=== PATIENT | female | born 1930 | race Caucasian/White ===

== ENCOUNTER → 2016-12-25 | Outpatient (CLI) | payer MEDICARE, BC ==
[2013-12-27 22:57] VITALS: BP 119/57
--- NOTE | 2016-12-25 09:23 | RAD ---
Examination: Single view of the right hip with frontal view of the pelvis History: History of right hip pain. Comparison: None available Findings: The bilateral femoral heads are within the acetabula. There is moderate joint space loss identified in the bilateral hip joints likely due to degeneration. There is no acute fracture or dislocation identified. Moderate degenerative changes lower lumbar spine. Impression: 1. Moderate degenerative changes bilateral hip joints.
== END | disposition home or self-care (01) ==
LOC: DXRADRC 07:45
PROVIDERS: ATTEND Physician Assistant Medical
DX: M16.0 Bilateral primary osteoarthritis of hip (principal); M47.816 Spondylosis without myelopathy or radiculopathy, lumbar region
CPT/HCPCS: 73501

== ENCOUNTER 2019-05-20 10:37 | Observation (INO) | payer MEDICARE ==
[~2019-05-20] VITALS: Ht 157.5 cm; Wt 58.5 kg
[2019-05-20] MEDS ORDERED: MORPHINE SULFATE 2 MG/ML DISP.SYRIN. IV ONE (11:00)
[2019-05-20] MEDS ORDERED: IV NORMAL SALINE 500ML 500 ML IV ONE (11:00)
[2019-05-20] MEDS ORDERED: ASPIRIN 81 MG TAB.CHEW PO ONE (11:00)
--- NOTE | 2019-05-20 11:00 | PHYS DOC ---
Past History Past Medical History: Hypertension, TIA Past Surgical History: Appendectomy, Cholecystectomy, Tonsillectomy Alcohol Use: None Drug Use: None Adult General Chief Complaint Chief Complaint: CHEST PAIN [facility] HPI Patient is a 89-year-old female with past medical history significant for hypertension presents secondary to complaint of substernal chest pain that started approximately 30 minutes prior to arrival and lasted for 10 minutes. The patient states that she was sitting down eating breakfast when all of a sudden she started choking slightly and developed some central chest pain that was described as a pressure and rated as moderate to severe. This lasted for approximately 10 minutes and then resolved spontaneously. She has had some intermittent shortness of breath since that time. Patient also complains of intermittent right upper arm pain for the past couple of days with no known injury. She did not take her blood pressure medication this morning. She has not been sick recently. Review of Systems Review of Systems All other ROS is negative unless otherwise stated in HPI Allergies Allergies Allergies Coded Allergies Type Severity Reaction Last Updated Verified No Known Drug Allergies 12/27/13 No Physical Exam Physical Exam See above Constitutional: Well developed, well nourished, slightly anxious, non-toxic appearance. [] HENT: Normocephalic, atraumatic, bilateral external ears normal, oropharynx moist, no oral exudates, nose normal. [] Eyes: PERRLA, EOMI, conjunctiva normal, no discharge. [] Neck: Normal range of motion, no tenderness, supple, no stridor. [] Cardiovascular:Heart rate regular rhythm, no murmur [] Lungs & Thorax: Bilateral breath sounds clear to auscultation []chest is nontender to palpation Abdomen: Bowel sounds normal, soft, no tenderness, no masses, no pulsatile masses. [] Skin: Warm, dry, no erythema, no rash. [] Back: No tenderness, no CVA tenderness. [] Extremities: No tenderness, no cyanosis, no clubbing, ROM intact, no edema. [] Neurologic: Alert and oriented X 3, normal motor function, normal sensory function, no focal deficits noted. [] Psychologic: Affect normal, judgement normal, mood normal. [] Current Patient Data Lab Results Laboratory Tests Test 05/20/19 10:50 White Blood Count 6.0 x10^3/uL Red Blood Count 4.09 x10^6/uL Hemoglobin 12.6 g/dL Hematocrit 37.6 % Mean Corpuscular Volume 92 fL Mean Corpuscular Hemoglobin 31 pg Mean Corpuscular Hemoglobin Concent 33 g/dL Red Cell Distribution Width 13.2 % Platelet Count 299 x10^3/uL Neutrophils (%) (Auto) 67 % Lymphocytes (%) (Auto) 21 % Monocytes (%) (Auto) 7 % Eosinophils (%) (Auto) 4 % Basophils (%) (Auto) 1 % Neutrophils # (Auto) 4.0 x10^3uL Lymphocytes # (Auto) 1.3 x10^3/uL Monocytes # (Auto) 0.4 x10^3/uL Eosinophils # (Auto) 0.2 x10^3/uL Basophils # (Auto) 0.1 x10^3/uL Prothrombin Time 9.6 SEC Prothromb Time International Ratio 0.9 Activated Partial Thromboplast Time 25 SEC D-Dimer (Alisa) 0.66 mg/L Sodium Level 141 mmol/L Potassium Level 4.0 mmol/L Chloride Level 102 mmol/L Carbon Dioxide Level 26 mmol/L Anion Gap 13 Blood Urea Nitrogen 19 mg/dL Creatinine 1.5 mg/dL Estimated GFR (Cockcroft-Gault) 32.8 Glucose Level 101 mg/dL Calcium Level 9.1 mg/dL Magnesium Level 2.1 mg/dL Creatine Kinase 63 U/L Creatine Kinase MB (Mass) 1.2 ng/mL Creatine Kinase MB Relative Index 1.9 % Troponin I Quantitative < 0.017 ng/mL DO-Txx-B-Type Natriuretic Peptide 533 pg/mL Lipase 187 U/L Current Medications Medications (Trade) Dose Ordered Sig/Dilma Route PRN Reason Start Time Stop Time Status Last Admin Dose Admin Aspirin (Children'S Aspirin) 324 mg 1X ONCE PO 05/20/19 11:00 05/20/19 11:05 DC 05/20/19 11:11 Morphine Sulfate (Morphine 2mg Syringe) 2 mg 1X ONCE IV 05/20/19 11:00 05/20/19 11:05 DC 05/20/19 11:12 Sodium Chloride 500 ml @ 0 mls/hr 1X ONCE IV 05/20/19 11:00 05/20/19 11:05 DC 05/20/19 11:12 Ondansetron HCl (Zofran) 4 mg STK-MED ONCE .ROUTE 2/8/20 11:10 05/20/19 11:10 DC Ondansetron HCl (Zofran) 4 mg 1X ONCE IVP 05/20/19 11:15 05/20/19 11:16 DC 05/20/19 11:15 Famotidine (Pepcid Vial) 20 mg 1X ONCE IVP 05/20/19 12:00 05/20/19 12:01 DC 05/20/19 12:00 Iohexol (Omnipaque 350 Mg/ml) 100 ml 1X ONCE IV 05/20/19 12:30 05/20/19 12:31 DC Info (Do NOT chart on this entry -- for MONITORING) 1 each PRN DAILY PRN MC SEE COMMENTS 05/20/19 12:30 05/22/19 12:29 EKG EKG EKG shows normal sinus rhythm without ST changes. Patient's intervals are normal.[] Radiology/Procedures Radiology/Procedures EXAM: PORTABLE CHEST 1V INDICATION: Chest pain. TECHNIQUE: Single view COMPARISON: None FINDINGS: The heart size is normal. The great vessels appear unremarkable. No hilar mass is present. There is a double density cephalad to the aortic knob that could represent engorgement or tortuosity of the super aortic vessels. The lungs are mildly hyperlucent apices is clear. There is no pleural effusion or pneumothorax. There are no significant osseous abnormalities. IMPRESSION: Lung hyperlucency and possible engorgement of the supraaortic vessels. Otherwise no acute cardiopulmonary process. Based on index of clinical suspicion, further imaging by chest CT could be pursued. Electronically signed by: Theresa Garcia MD (05/20/2019 11:26 AM) [facility] EXAM: CT Pulmonary Angiogram INDICATION: Shortness of breath, abnormal chest x-ray at elevated d-dimer. TECHNIQUE: Multi-detector row images were acquired from the thoracic inlet through the upper abdomen with the use of IV contrast. Sagittal and coronal images were acquired from the transaxial data. MIP images of the pulmonary arteries were obtained. All CT scans performed at this facility utilize dose optimization techniques as appropriate to the exam, including the following: Automated exposure control and adjustment of the mA and/or KV according to patient size (this includes techniques or standardized protocols for targeted exams where dose is indication/reason for exam). IV CONTRAST: Administered COMPARISON: Chest x-ray earlier same day FINDINGS: PULMONARY ARTERIES: No pulmonary emboli are identified. CARDIOVASCULAR: Tortuous supraaortic vessels, resulting in prominence of the superior mediastinum as noted on earlier same day chest x-ray. Aorta is normal caliber. Coronary calcifications are present. MEDIASTINUM & LOU: Dominant right thyroid lobe nodule measuring 1.9 cm. Small hiatal hernia. Otherwise no mediastinal or hilar mass. LUNGS: Mosaic attenuation to the lungs, suggesting some degree of air trapping. No parenchymal consolidation. Mild vascular congestion notably at the lung bases. PLEURAL SPACE: No pleural effusions or pneumothorax. OSSEOUS & SOFT TISSUE: Old, healed sternal fracture. ABDOMEN: The visualized portions of the upper abdomen are unremarkable. IMPRESSION: Pulmonary congestion with trace right pleural effusion. This is presence in the setting of coronary artery disease. No other acute cardiopulmonary process otherwise shown. Electronically signed by: Theresa Garcia MD (05/20/2019 1:02 PM) [facility][] Course & Med Decision Making Course & Med Decision Making Pertinent Labs and Imaging studies reviewed. (See chart for details) A 9-year-old female seen for chest pain that is currently resolved. In the ED she states that she has a sensation that it might be coming back. We'll initiate cardiac workup, give aspirin and go ahead and give 2 mg of morphine. We'll give her 500 mL normal saline bolus. EKG is unremarkable. Different diagnosis includes corneal function, angina, esophageal spasm, pulmonary embolism, pneumonia. 1310: Patient is workup is completed this time and is rather unremarkable. Her d-dimer was elevated so CT angiogram was performed to look for pulmonary embolism and also some irregularity on chest x-ray; her CT angiogram was unremarkable. She has a mild elevation in her BNP today and a trace pleural effusion as well. Patient will be admitted at this time for observation for chest pain rule out. Dragon Disclaimer Dragon Disclaimer This electronic medical record was generated, in whole or in part, using a voice recognition dictation system. Departure Departure: Impression: Primary Impression: Atypical chest pain Additional Impressions: Elevated brain natriuretic peptide (BNP) level Pleural effusion, right Disposition: ADMITTED INPATIENT Admitting Physician: Diego King Condition: STABLE Referrals: [facility] MON (PCP) HEART Score for Chest Pain PTs The HEART Score for CP Pts HEART Score for Chest Pain: HEART Score for Chest Pain Response (Comments) Value History Moderately Suspicious 1 ECG Normal 0 Age > 65 2 Risk Factors 1 or 2 Risk Factors 1 Troponin < Normal Limit 0 Total 4 Risk Factors: Risk Factors: HTN Risk Scores: Score 0 - 3: 2.5% MACE over next 6 weeks - Discharge Home Score 4 - 6: 20.3% MACE over next 6 weeks - Admit for Clinical Observation Score 7 - 10: 72.7% MACE over next 6 weeks - Early Invasive Strategies Problem Qualifiers ESTEPHANIA CHRISTINE DO May 20, 2019 11:00
[2019-05-20] MEDS ORDERED: ONDANSETRON PF 4 MG/2 ML VIAL. ONE (11:10)
[2019-05-20] MEDS ORDERED: ONDANSETRON PF 4 MG/2 ML VIAL. IVP ONE (11:15)
[2019-05-20 11:20] LABS: BASO # 0.1 x10^3/uL (0.0-0.2); BASO % 1 % (0-3); EOS # 0.2 x10^3/uL (0.0-0.7); EOS % 4 % (0-3); HEMATOCRIT 37.6 % (36.0-47.0); HEMOGLOBIN 12.6 g/dL (12.0-15.5); LYMPH # 1.3 x10^3/uL (1.0-4.8); LYMPH % 21 % (24-48); MEAN CORPUSCULAR HEMOGLOBIN 31 pg (25-35); MEAN CORPUSCULAR HGB CONC 33 g/dL (31-37); MEAN CORPUSCULAR VOLUME 92 fL (79-100); MONO # 0.4 x10^3/uL (0.0-1.1); MONO % 7 % (0-9); NEUT % 67 % (31-73); PLATELET COUNT 299 x10^3/uL (140-400); RED BLOOD COUNT 4.09 x10^6/uL (3.50-5.40); RED CELL DISTRIBUTION WIDTH 13.2 % (11.5-14.5)
[2019-05-20] MEDS ORDERED: OLME1TAB25 PO (11:28)
[2019-05-20 11:29] LABS: CALCIUM 9.1 mg/dL (8.5-10.1); CREATININE 1.5 mg/dL (0.6-1.0); GFR 32.8
--- NOTE | 2019-05-20 11:29 | RAD ---
EXAM: PORTABLE CHEST 1V INDICATION: Chest pain. TECHNIQUE: Single view COMPARISON: None FINDINGS: The heart size is normal. The great vessels appear unremarkable. No hilar mass is present. There is a double density cephalad to the aortic knob that could represent engorgement or tortuosity of the super aortic vessels. The lungs are mildly hyperlucent apices is clear. There is no pleural effusion or pneumothorax. There are no significant osseous abnormalities. IMPRESSION: Lung hyperlucency and possible engorgement of the supraaortic vessels. Otherwise no acute cardiopulmonary process. Based on index of clinical suspicion, further imaging by chest CT could be pursued. Electronically signed by: Theresa Garcia MD (05/20/2019 11:26 AM) [facility]
[2019-05-20 11:45] LABS: MAGNESIUM 2.1 mg/dL (1.8-2.4)
[2019-05-20] MEDS ORDERED: FAMOTIDINE 20 MG/2 ML VIAL IVP ONE (12:00)
[2019-05-20] MEDS ORDERED: IOHEXOL 350 MG/ML 100 ML VIAL. IV ONE (12:30)
[2019-05-20] MEDS ORDERED: CONTRAST GIVEN MC PRN (12:30)
--- NOTE | 2019-05-20 12:42 | EKG ---
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
--- NOTE | 2019-05-20 13:05 | RAD ---
EXAM: CT Pulmonary Angiogram INDICATION: Shortness of breath, abnormal chest x-ray at elevated d-dimer. TECHNIQUE: Multi-detector row images were acquired from the thoracic inlet through the upper abdomen with the use of IV contrast. Sagittal and coronal images were acquired from the transaxial data. MIP images of the pulmonary arteries were obtained. All CT scans performed at this facility utilize dose optimization techniques as appropriate to the exam, including the following: Automated exposure control and adjustment of the mA and/or KV according to patient size (this includes techniques or standardized protocols for targeted exams where dose is indication/reason for exam). IV CONTRAST: Administered COMPARISON: Chest x-ray earlier same day FINDINGS: PULMONARY ARTERIES: No pulmonary emboli are identified. CARDIOVASCULAR: Tortuous supraaortic vessels, resulting in prominence of the superior mediastinum as noted on earlier same day chest x-ray. Aorta is normal caliber. Coronary calcifications are present. MEDIASTINUM & LOU: Dominant right thyroid lobe nodule measuring 1.9 cm. Small hiatal hernia. Otherwise no mediastinal or hilar mass. LUNGS: Mosaic attenuation to the lungs, suggesting some degree of air trapping. No parenchymal consolidation. Mild vascular congestion notably at the lung bases. PLEURAL SPACE: No pleural effusions or pneumothorax. OSSEOUS & SOFT TISSUE: Old, healed sternal fracture. ABDOMEN: The visualized portions of the upper abdomen are unremarkable. IMPRESSION: Pulmonary congestion with trace right pleural effusion. This is presence in the setting of coronary artery disease. No other acute cardiopulmonary process otherwise shown. Electronically signed by: Theresa Garcia MD (05/20/2019 1:02 PM) [facility]
[2019-05-20 13:29] LABS: BACTERIA,URINE MANY /HPF (0-FEW); BILIRUBIN,URINE NEG (NEG); CLARITY,URINE HAZY; COLOR,URINE YELLOW; GLUCOSE,URINE NEG (NEG); NITRITE,URINE NEG (NEG); SQUAMOUS EPITHELIAL CELL,UR OCC /LPF; UROBILINOGEN,URINE 0.2 mg/dL (0.2 mg/dL); WBC,URINE 20-40 /HPF (0-4)
[2019-05-20] MEDS ORDERED: ONDANSETRON PF 4 MG/2 ML VIAL. IV PRN (13:30)
[2019-05-20] MEDS ORDERED: MORPHINE SULFATE 2 MG/ML DISP.SYRIN. IV PRN (13:30)
[2019-05-20 13:53] VITALS: BP 121/54
[2019-05-20] MEDS ORDERED: FLU VAX QS 2019-20 (36MOS+)/PF 0.5 ML SYRINGE. VAX IM ONE (14:30)
[2019-05-20 15:42] VITALS: BP 109/63
--- NOTE | 2019-05-20 16:56 | HP ---
ADMIT DATE: 05/20/2019 HISTORY OF PRESENT ILLNESS: The patient is an 89-year-old female patient, who was brought to the Emergency Room with a complaint of substernal chest pain that started approximately 30 minutes prior to arrival and lasted for about 10 minutes. The patient states that she was sitting down, eating breakfast when all of a sudden she started choking, starting to develop some central chest pain. It was described as a pressure, rated as moderate to severe, lasted about approximately 10 minutes and then resolved spontaneously. She had had some intermittent shortness of breath at that time. She is also complaining of pain in her right shoulder that extends to her right elbow, but no pain in her right forearm or fingers She denied any fall or trauma. She apparently went to the pharmacy and took some ibuprofen that helped the pain. In questioning her further, it transpired that she had this choking episodes before according to her grandson; however, she denied any relation to exertion. She is still fairly independent, lives in her own, takes care of herself, drives and do her own shopping. She was evaluated in the Emergency Room and her lab work showed that he has impaired kidney function with creatinine of 1.5 and estimated GFR of 33 mL per minute. Her blood count was unremarkable. Her prothrombin time, INR and aPTT were normal. However, D-dimer was slightly elevated at 0.66. Urinalysis was unremarkable. It did show 20-40 wbc's, small leukocyte esterase and many bacteria. She has also had first set of cardiac enzymes show troponin to be less than 0.017 and her beta natriuretic peptide was slightly elevated at 533. She has had a chest x-ray, which showed that the heart size is normal, the great vessels appear unremarkable. No hilar mass is present. There is a double density cephalad to the aortic knob that could represent engorgement or tortuosity of the upper aortic vessels. The lungs are mildly have hyperlucent apices. There is no pleural effusion or pneumothorax. There is no significant osseous abnormality. Given the finding on the chest x-ray and also the elevated D-dimer, she has had CT angio of the chest, which showed that there are no pulmonary emboli. There are tortuous supra-vessels resulting in prominence of the superior mediastinum as noted on earlier the same day chest x-ray. Aorta is normal in caliber. Coronary calcifications are present. The mediastinum and kim showed dominant right thyroid lobe nodule measuring 1.9 cm, small hiatal hernia, otherwise no mediastinal or hilar masses. The lungs showed mosaic attenuation to the lungs suggesting some degree of air trapping. No parenchymal consolidation. Mild vascular congestion notably at the lung bases, pleural space. No pleural effusion or pneumothorax. Osseous and soft tissue showed an old healed sternal fracture. The visualized portions of the upper abdomen are unremarkable. The impression is the patient has pulmonary congestion with trace right pleural effusion. This is present in the setting of coronary artery disease. No other acute cardiopulmonary process is otherwise shown. The patient was admitted to do 2 more sets of cardiac enzymes, check her fasting lipid profile and consult the Cardiology team. She also has pain in her right shoulder that we will investigate with right shoulder x-ray and if unrevealing, we may have to do a bone scan. PAST MEDICAL HISTORY: Significant for hypertension. She apparently has a history of TIA. MEDICATIONS: She is currently on olmesartan/hydrochlorothiazide 40/125 one tablet once a day. PAST SURGICAL HISTORY: Significant for cholecystectomy, appendectomy, tonsillectomy. ALLERGIES: She has no known drug allergies. FAMILY HISTORY: She had one sister who at the age of 80, cause of is not clear. Father at age of 92 and mother at age of 96. SOCIAL HISTORY: She is , has 1 son and 2 grandchildren. She never smoked, does not drink alcohol. 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 REVIEW OF SYSTEMS: The patient denied any blurring of vision, cataract, glaucoma or macular degeneration. Denied any earache, tinnitus or sensorineural deafness. Denied any nosebleeds, stuffy nose or postnasal drip. Denied any sore throat, sore tongue, toothache, hoarseness of voice. Did complain of difficulty swallowing to solids, but not to liquids. Denied any weight loss. Denied any nausea, vomiting, diarrhea or constipation. Denied any hematemesis, melena or hematochezia. Denied any dysuria, frequency or hematuria. Did complain of chest pain, some intermittent shortness of breath, but denied any cough, phlegm or hemoptysis. Denied any dizziness, lightheadedness or vertigo. Denied any chills, rigors or fever. PHYSICAL EXAMINATION: GENERAL: On arrival to the Emergency Room, she looked well and was clearly in no apparent respiratory distress. No pallor, jaundice, cyanosis or thyromegaly. No jugular venous distention. No lower limb edema. VITAL SIGNS: Her heart rate was 72, blood pressure 155/61, temperature was 97.7, respiratory rate was 20 and oxygen saturation was 100% on room air. HEAD, EYES, EARS, NOSE AND THROAT: Showed normocephalic, atraumatic. NECK: Supple. HEART: Showed normal first and second heart sounds. No gallop or murmur. CHEST: Clear to auscultation. No crepitation, rhonchi. ABDOMEN: Distended, soft, nontender. NEUROLOGIC: She is awake, alert, responding appropriately. All cranial nerves intact. EXTREMITIES: She moves extremities without difficulty. She obviously ambulates without assistance or assistive devices. She has tenderness on the right shoulder posteriorly, although surprisingly her range of movement of her shoulder is extremely well given her age, There is no obvious deformity of any redness or tenderness in the right arm. LABORATORY DATA: Her lab work on arrival showed serum sodium of 141, potassium 4, chloride 102, bicarbonate 26, anion gap of 13, BUN 19, creatinine 1.5, estimated GFR was 32 mL per minute. Her glucose was 101, calcium was 9.1, magnesium was 2.1, CK was 63. First set of cardiac troponin was less than 0.017. Beta natriuretic peptide was 533 and lipase was 187. Serum sodium was 6. Her white cell count was 6000, hemoglobin 12.6, hematocrit 37.6, MCV 92 and platelet count 299,000. Her prothrombin time and INR and aPTT are normal. D-dimer is slightly elevated at 0.66. Her urinalysis showed the urine was yellow, hazy with pH of 8, specific gravity of 1.015. The urine was negative for protein, glucose, ketones, blood and nitrite. There was small amount of leukocyte esterase, 1-2 rbc's, 20-40 wbc's and many bacteria. Her chest x-ray showed that the lung hyperlucency and possible involvement of the supra-aortic vessels, otherwise no acute cardiopulmonary process. Based on the index, clinical suspicion further imaging by CT could be pursued. CT angio of the chest showed that there is pulmonary congestion with trace right pleural effusion. This is present in the setting of coronary artery disease. PLAN: My plan is to do 2 more sets of cardiac enzymes, check her fasting lipid profile tomorrow morning, consult the Cardiology team. We will also arrange for her to have x-ray of her right shoulder and decide on further management accordingly. BONNIE NAPIER MD DR: ZAFAR/brock JOB#: [id number] / [id number]
[2019-05-20] MEDS ORDERED: DICLOFENAC SODIUM 1% TOPICAL GEL 100GM TUBE. TP PRN (17:15)
[2019-05-20] MEDS: IBUPROFEN 400 MG TABLET. PO PRN (18:35)
[2019-05-20 19:45] VITALS: BP 125/67
[2019-05-20] MEDS ORDERED: LOSARTAN 50 MG TABLET. PO SCH (21:00)
[2019-05-20] MEDS ORDERED: hydroCHLOROthiazide 25 MG TABLET PO SCH (21:00)
[2019-05-21 06:17] VITALS: BP 130/66
[2019-05-21 07:37] LABS: C REACTIVE PROTEIN 14.3 mg/L (0-3.3); CALCIUM 8.4 mg/dL (8.5-10.1); CREATININE 1.5 mg/dL (0.6-1.0); GFR 32.8; POTASSIUM 4.4 mmol/L (3.5-5.1)
--- NOTE | 2019-05-21 08:32 | RAD ---
Exam performed:3 views right shoulder Indication:severe right shoulder pain Date of service:05/20/2019. Comparison:None available Findings : AP radiographs of the shoulder in internal and external rotation as well as a Y-view reveal the osseous structures to be intact and well aligned. The joint space is well-preserved. The articular margins are smooth.Chronic changes in the right lung. Impression: Radiographically normal shoulder. Electronically signed by: Alysa Figueroa MD (05/21/2019 8:29 AM) [facility]
[2019-05-21] MEDS: IBUPROFEN 400 MG TABLET. PO PRN (09:40)
[2019-05-21] MEDS: IV DEXTROSE 5 %-0.45 % NACL 1,000 ML IV SCH ×2 (09:41→22:55)
[2019-05-21 11:00] VITALS: BP 116/70
--- NOTE | 2019-05-21 13:02 | PN ---
DATE: 05/20/2019 SUBJECTIVE: The patient continued to complain of severe pain in her right shoulder. Her retrosternal chest pain has largely subsided. We did 3 sets of cardiac enzymes that ruled out acute myocardial infarction. Did have multiple episodes of choking according to her grandson and has one episode of vomiting this morning and also loose bowel movement. PHYSICAL EXAMINATION: GENERAL: By the time I saw her this afternoon, she was sitting, slightly propped up in bed, eating her lunch comfortably, in no apparent distress. She was pale, but no jaundice, cyanosis or thyromegaly. No jugular venous distention or limb edema. VITAL SIGNS: Her heart rate was 66, blood pressure 130/66, temperature was 98.1, respiratory rate 16, and oxygen saturation was 96%. HEAD, EYES, EARS, NOSE AND THROAT: Normocephalic, atraumatic. NECK: Supple. HEART: Showed normal first and second heart sounds with no gallop or murmur. CHEST: Clear to auscultation. No crepitation or rhonchi. ABDOMEN: Distended, soft, nontender. NEUROLOGIC: She is awake, alert, responding appropriately. All cranial nerves intact. She moves extremities without difficulty. She is able to ambulate without assistance or assistive devices. Her intake was 480, output was 650. LABORATORY DATA: As of this morning, her serum sodium was 140, potassium 4.4, chloride 105, bicarbonate 27, anion gap of 8, BUN 20, creatinine 1.5, estimated GFR was 32 mL per minute. Her glucose was 110, calcium was 8.4. Her serum triglycerides 70, total cholesterol 120, LDL was 56, VLDL was 14, HDL cholesterol of 50 and the ratio was 2. Her sedimentation rate was 28 mm per hour. ASSESSMENT: In summary, this is an 89-year-old female patient who came in with complaint of retrosternal chest pain for which she has had 3 sets of cardiac enzymes that ruled out acute myocardial infarction. She has also pain in her right shoulder. X-ray was essentially unremarkable. She has high blood pressure for which she is on hydrochlorothiazide and Benicar. She also has chronic kidney disease with a creatinine of about 1.5. History of transient ischemic attack. Her fasting lipid profile is well within normal range. PLAN: My plan is to arrange for her to be seen by speech therapist for swallowing evaluation as well as esophagogram angiogram and bone scan and if all these are within normal range, she can be discharged home. BONNIE NAPIER MD DR: ZAFAR/brock JOB#: [id number] / [id number]
[2019-05-21 15:25] VITALS: BP 103/54
[2019-05-21 18:42] VITALS: BP 109/66
[2019-05-22 05:05] VITALS: BP 121/67
[2019-05-22 06:18] LABS: HEMATOCRIT 33.6 % (36.0-47.0); RED BLOOD COUNT 3.61 x10^6/uL (3.50-5.40); RED CELL DISTRIBUTION WIDTH 13.5 % (11.5-14.5); WHITE BLOOD COUNT 5.8 x10^3/uL (4.0-11.0)
[2019-05-22 06:24] LABS: ALBUMIN 2.8 g/dL (3.4-5.0); ALBUMIN/GLOBULIN RATIO 0.8 (1.0-1.7); CALCIUM 7.9 mg/dL (8.5-10.1); CREATININE 1.4 mg/dL (0.6-1.0); GFR 35.6; POTASSIUM 3.5 mmol/L (3.5-5.1); TOTAL BILIRUBIN 0.3 mg/dL (0.2-1.0); TOTAL PROTEIN 6.1 g/dL (6.4-8.2)
[2019-05-22 10:50] VITALS: BP_SYST 117; BP_SYST 126; BP_DIAS 67; BP_DIAS 69
--- NOTE | 2019-05-22 15:55 | RAD ---
Whole body bone scan Clinical indications: Right shoulder pain and abnormal x-ray. TECHNIQUE: After IV infusion of 25 mCi of technetium 99m MDP, delayed anterior posterior planar images of the lateral body were performed. COMPARISON: No previous bone scan. Right shoulder x-ray study dated May 20, 2019. FINDINGS: Bilateral renal function is seen. Scoliosis is seen. Degenerative activity of the left lower cervical spine is seen. There is degenerative activity seen involving the AC joints bilaterally. There is degenerative activity seen involving the right glenohumeral joint. There is degenerative activity seen involving the right sternoclavicular joint. No pattern of uptake is seen to indicate osseous metastatic disease scintigraphically. 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 Radiographic study dated May 20, 2019 demonstrates degenerative joint space narrowing and spurring of the right AC joint and degenerative joint space narrowing without spurring of the glenohumeral joint. Electronically signed by: Adilson Escalera MD (05/22/2019 2:48 PM) [facility]
--- NOTE | 2019-05-22 15:55 | RAD ---
Barium esophagram History: Difficulty swallowing, intermittent choking episodes Comparison: Chest radiograph 05/20/2019 Findings: On the school speech therapist radiograph of the chest, there is some opacity of the left lateral lung base somewhat more apparent on this exam. There is likely small left pleural effusion. There is atherosclerotic calcification greater near aortic arch. Barium esophagram was performed. Overall caliber of the esophagus is within normal limits. Esophageal motility is overall effective with normal transit of contrast, a few tertiary contractions noted of the mid to distal esophagus. There is small sliding hiatal hernia with associated stricture/ring formation, estimated luminal diameter reduction of about 50%. Incidental note is made of cervical degenerative disc disease and spondylosis greatest at C5-6. Fluoroscopy time: 40 seconds, 72 images Impression: 1. There is a small sliding hiatal hernia with associated stricture/ring formation, resultant approximate 50% luminal diameter reduction. 2. There is mild infiltrate of the left lateral lung base more apparent on this exam, also probable small left pleural effusion. Electronically signed by: Richard Grullon MD (05/22/2019 3:38 PM) [id number]
--- NOTE | 2019-05-22 20:40 | DS ---
DATE OF DISCHARGE: 05/20/2019 HOSPITAL COURSE: The patient is an 89-year-old female patient, who was brought with multiple choking episodes and intestinal discomfort. She has also complained of severe pain in her right shoulder. We did actually 3 sets of cardiac enzymes that ruled out acute myocardial infarction. She has also had x-ray of her right shoulder, which was essentially unremarkable; however, we did a bone scan, which basically showed osteoarthritis of acromioclavicular joint and the right glenohumeral joint and the right sternoclavicular joint. Radiographic study dated 05/20/2019 demonstrated degenerative joint space narrowing and spurring of the right acromioclavicular joint and degenerative joint space narrowing without spurring of the glenohumeral joint. Her esophagram showed that the patient has small sliding hiatal hernia with associated stricture ring formation resultant approximately 50% luminal diameter reduction. There is mild infiltrate at the left lateral lung base, more apparent on this exam, probably small pleural effusion. I explained the findings to the son and the patient. The patient is not interested in any steroid injection of the right shoulder nor is she interested in esophagogastroduodenoscopy and esophageal dilatation. The patient has been eating her diet without any dysphagia here, although according to her son and her grandson, she had multiple episodes of choking before. I suggested that she see a sheet music salesperson and an orthopedic surgeon, but the patient is adamant she does not want to do any steroid injection and does not want to do any esophageal dilatation for the time being. PHYSICAL EXAMINATION: GENERAL: When I saw her this afternoon, she was resting slightly propped up in bed, in no apparent respiratory distress. No pallor, jaundice, cyanosis or thyromegaly. No jugular venous distension. No lower limb edema. VITAL SIGNS: Her heart rate was 63, blood pressure was 126/67, temperature 97.5, respiratory rate was 18 and oxygen saturation was 96%. The rest of clinical exam is stable. LABORATORY DATA: Her lab work this morning showed a white cell count 5800, hemoglobin 11, hematocrit 33, MCV 93, platelet count 248,000. Her chemistry showed a serum sodium 141, potassium 3.5, chloride 106, bicarbonate 25, anion gap of 10, BUN 17, creatinine 1.4, estimated GFR was 35 mL per minute. Her glucose was 114, calcium was 7.9. Total bilirubin, AST, ALT, alkaline phosphatase are normal. Total protein was 6.1, albumin was 2.8. Her C-reactive protein was 14.3. Her ESR was 28 mm per hour. DISCHARGE MEDICATIONS: The patient was discharged home to continue on her olmesartan/hydrochlorothiazide 40/25. FINAL DISCHARGE DIAGNOSES: 1. Dysphagia due to sliding hiatal hernia with stricture ring. 2. Severe osteoarthritis of the right shoulder. 3. Hypertension. 4. Has history of transient ischemic attack. The patient is not interested in any steroid injection nor is she is interested in upper GI endoscopy and esophageal dilatation. BONNIE NAPIER MD DR: ZAFAR/brock JOB#: [id number] / [id number]
== END 2019-05-22 18:15 | disposition home or self-care (01) ==
LOC: ER 10:37 → 1 SOUTH 13:25
PROVIDERS: ADMIT Internal Medicine; ATTEND Internal Medicine
DX: R07.89 Other chest pain (principal); I12.9 Hypertensive chronic kidney disease with stage 1 through stage 4 chronic kidney disease, or unspecified chronic kidney disease; N18.9 Chronic kidney disease, unspecified; K44.9 Diaphragmatic hernia without obstruction or gangrene; M19.011 Primary osteoarthritis, right shoulder; R79.0 Abnormal level of blood mineral; J90 Pleural effusion, not elsewhere classified; R13.10 Dysphagia, unspecified; Z23 Encounter for immunization; Z79.899 Other long term (current) drug therapy; Z90.49 Acquired absence of other specified parts of digestive tract; Z86.73 Personal history of transient ischemic attack (TIA), and cerebral infarction without residual deficits
CPT/HCPCS: 36415; 71045; 71275; 73030; 74220; 78306; 80048; 80053; 80061; 81001; 82553; 83690; 83735; 83880; 84484; 85025; 85027; 85379; 85610; 85651; 85730; 86140; 90471; 90686; 92610; 93005; 96374; 96375; 99284; A9503; G0378; J2270; J2405; J3490; J7040; Q9967; G0379

== ENCOUNTER → 2020-12-20 | Outpatient (CLI) | payer MEDICARE ==
[2019-05-22 10:50] VITALS: BP 126/67
[~2020-12-20] MED LIST: OLME1TAB25 PO
[2020-12-20 15:08] LABS: ALBUMIN 3.4 g/dL (3.4-5.0); CALCIUM 8.9 mg/dL (8.5-10.1); CREATININE 1.6 mg/dL (0.6-1.0); GFR 30.4; PHOSPHORUS 3.1 mg/dL (2.6-4.7); POTASSIUM 3.9 mmol/L (3.5-5.1)
--- NOTE | 2020-12-20 17:53 | RAD ---
Renal ultrasound 12/20/2020 CLINICAL HISTORY: Chronic kidney disease. TECHNIQUE: A real-time ultrasound examination of both kidneys and the urinary bladder was performed. Multiple images were obtained. FINDINGS: Both kidneys are mildly atrophic.. The right kidney measures 8.6 cm in length. The left kid ekta measures 9.0 cm in length. No focal abnormality of either kidney is seen. There is no evidence of hydronephrosis. No renal calculus is seen. The urinary bladder is slightly contracted. No abnormality is seen. IMPRESSION: There is no sonographic evidence of hydronephrosis. Electronically signed by: Elliott Cuevas MD (12/20/2020 5:50 PM) [id number]
[2020-12-21 08:36] LABS: BACTERIA,URINE MOD /HPF (0-FEW); BILIRUBIN,URINE NEG (NEG); CLARITY,URINE CLOUDY; COLOR,URINE YELLOW; GLUCOSE,URINE NEG (NEG); NITRITE,URINE NEG (NEG); RBC,URINE RARE /HPF (0-2); SQUAMOUS EPITHELIAL CELL,UR OCC /LPF; UROBILINOGEN,URINE 0.2 mg/dL (0.2 mg/dL); WBC,URINE 20-40 /HPF (0-4)
[2020-12-21 11:17] LABS: CREATININE,RANDOM URINE 51.6 mg/dL (Not Establ.)
== END ==
LOC: US 14:08
PROVIDERS: ATTEND Internal Medicine Nephrology
DX: I12.9 Hypertensive chronic kidney disease with stage 1 through stage 4 chronic kidney disease, or unspecified chronic kidney disease (principal); N18.32 Chronic kidney disease, stage 3b; N17.9 Acute kidney failure, unspecified; N32.89 Other specified disorders of bladder; Z68.22 Body mass index [BMI] 22.0-22.9, adult
CPT/HCPCS: 36415; 76770; 80069; 81001; 82570; 84156; 87077; 87086; 87186

== ENCOUNTER → 2021-05-19 | Outpatient (CLI) | payer MEDICARE ==
[2019-05-22 10:50] VITALS: BP 126/67
[2021-05-19 08:24] LABS: ALBUMIN 3.5 g/dL (3.4-5.0); CALCIUM 9.1 mg/dL (8.5-10.1); CREATININE 1.7 mg/dL (0.6-1.0); GFR 28.3; PHOSPHORUS 3.9 mg/dL (2.6-4.7)
== END ==
LOC: LAB 07:30
PROVIDERS: ATTEND Internal Medicine Nephrology
DX: I12.9 Hypertensive chronic kidney disease with stage 1 through stage 4 chronic kidney disease, or unspecified chronic kidney disease (principal); N18.32 Chronic kidney disease, stage 3b; N17.9 Acute kidney failure, unspecified; D64.9 Anemia, unspecified; Z68.22 Body mass index [BMI] 22.0-22.9, adult
CPT/HCPCS: 36415; 80069

== ENCOUNTER → 2021-06-20 | Outpatient (CLI) | payer MEDICARE ==
[2019-05-22 10:50] VITALS: BP 126/67
--- NOTE | 2021-06-20 14:16 | RAD ---
EXAMINATION: DG BARIUM SWALLOW 06/20/2021 9:56 AM HISTORY: Dysphagia COMPARISON: None. TECHNIQUE: The patient swallowed effervescent crystals followed by thick and thin barium and was obse rved under intermittent fluoroscopy. FINDINGS: Esophageal mucosa is normal in appearance. The esophagus distends normally. There is mild dysmotility with bolus breakup and occasional tertiary contractions. No evidence of mass. No hiatal hernia. Ther e is mild gastroesophageal reflux. Total fluoroscopic time:1.7 minutes.. 3 fluoroscopic images and 3 cine clips were saved. IMPRESSION: 1. Mild esophageal dysmotility. 2. Mild gastroesophageal reflux. Electronically signed by: Magaly Hammonds MD (06/20/2021 2:14 PM) [id number]
== END ==
LOC: RAD 09:20
PROVIDERS: ATTEND Internal Medicine Gastroenterology
DX: K21.9 Gastro-esophageal reflux disease without esophagitis (principal)
CPT/HCPCS: 74220